=== PATIENT | female | born 1965 | race African-American/Black ===

== ENCOUNTER → 2016-09-25 | Outpatient (CLI) | payer BC ==
[~2016-09-25] MED LIST: ENAL10TA7 PO; FERR325T PO; LEVE500T8 PO; SIMV40TA PO
--- NOTE | 2016-09-26 07:47 | MG ---
cc: FRANCO COOK MD Lab No: Date: 09/25/2016 Age: Sex: F Race: DATE OF 1965 ELECTROENCEPHALOGRAM RECORD NUMBER [id number] HISTORY A 50-year-old with a history of seizures. DESCRIPTION 8 Hz posterior rhythm, 20-50 microvolts. Frontal beta good anterior to posterior gradient. Mild bitemporal slowing suggestive of drowsiness. Tiny sharp transient T3 epoch 49. Focal left greater than right temporal slowing at epoch 104. Good driving with photic stimulation. Single lead EKG showing sinus rhythm. Good EEG variability reactivity. Sinus rhythm. INTERPRETATION Subtle temporal changes. No active seizures. Otherwise stable EEG. Clinical correlation. Franco Cook MD MG/KK /8:28 PM /7:42 AM
== END ==
LOC: HEEG 08:15
PROVIDERS: ATTEND Psychiatry & Neurology Neurology
DX: G40.909 Epilepsy, unspecified, not intractable, without status epilepticus (principal)
CPT/HCPCS: 95819